=== PATIENT | female | born 1950 | race Hispanic/Latino ===

== ENCOUNTER 2019-02-07 15:30 | Outpatient (AMBR) | payer MEDICAID, SELFPAY ==
--- NOTE | 2019-01-26 18:25 | PT.ODAYNRPT ---
PT Outpatient Daily Note Date of Service: January 26, 2019 OP Daily Note Visit Reasons: RIGHT KNEE PAIN Outpatient Physical Therapy Treatment Date: 01/26/19 Subjective: Pt returns to therapy with additional authorized visits Objective: See F/S for therex Assessment: Pt can ambulate with less lateral sway when she concentrates. She has difficulty with SLR in supine and lacks knee extension. Improved knee extension PROM after Rx today. Plan: Continue per POC Length of Time (minutes) of Treatment: 30 Minutes Office Procedures PT Procedures PT Date of Service: 01/26/19 Therapeutic Exercise 30 minutes: Yes
--- NOTE | 2019-01-31 19:30 | PTNOTE_ITS ---
PT Outpatient Daily Note Date of Service: January 31, 2019 OP Daily Note Visit Reasons: RIGHT KNEE PAIN Outpatient Physical Therapy Treatment Date: 01/31/19 Subjective: The knee feels about the same as last visit Objective: See F/S for therex Assessment: Pt can ambulate with less lateral sway when she concentrates. She h as difficulty with SLR in supine and lacks knee extension. Improved knee extension PROM after Rx today. Plan: Continue per POC Length of Time (minutes) of Treatment: 30 Minutes Office Procedures PT Procedures PT Date of Service: 01/26/19 Therapeutic Exercise 30 minutes: Yes PT Procedures PT Date of Service: 01/31/19 Therapeutic Exercise 30 minutes: Yes
--- NOTE | 2019-02-02 17:46 | PT.ODAYNRPT ---
PT Outpatient Daily Note Date of Service: February 02, 2019 OP Daily Note Visit Reasons: RIGHT KNEE PAIN Outpatient Physical Therapy Treatment Date: 02/02/19 Subjective: The knee feels about the same as last visit Objective: See F/S for therex Assessment: Pt can ambulate with less lateral sway when she concentrates. She has difficulty with SLR in supine and lacks knee extension. Improved knee extension PROM after Rx today. Plan: Continue per POC Length of Time (minutes) of Treatment: 30 Minutes Office Procedures PT Procedures PT Date of Service: 02/02/19 Therapeutic Exercise 30 minutes: Yes PT Procedures PT Date of Service: 01/26/19 Therapeutic Exercise 30 minutes: Yes PT Procedures PT Date of Service: 01/31/19 Therapeutic Exercise 30 minutes: Yes
--- NOTE | 2019-02-07 16:12 | PT.ODS1RPT ---
PT OP Progress/Discharge Note Date of Service: February 07, 2019 Progress Note/DC Note Progress Note/Discharge Note: DC Note Patient Information Visit Reasons: RIGHT KNEE PAIN Service Continue Service or Discharge: Discharge Discharge Date: 02/07/19 Status Subjective: Pt reports the knee feels ok, not sure if it's any better since starting therapy Objective: R knee ArOM: Flexion: 75 deg Extension: -15 deg Strength: Quads: 4/5 HS: 4/5 Gait: lateral sway with flexed knee Assessment: Pt has attended 6/6 Rx visits and made limited progress with therapy goals objectively likely due to poor HEP compliance and time since sx. She improved in LE strength and slightly into flexion but is still very limited. Extension ArOM actually today vs the evaluation despite manual therapy and using weights to load the knee into extension with prolonged holding. Gait hasn't really improved either with cues or gait training. It's doubtful that she understands how much she understands here in the clinic as she has poor carryover visit to visit. Plan: Pt is discharged to provider for further workup. Office Procedures PT Procedures PT Date of Service: 02/02/19 Therapeutic Exercise 30 minutes: Yes PT Procedures PT Date of Service: 02/07/19 Therapeutic Exercise 30 minutes: Yes PT Procedures PT Date of Service: 01/26/19 Therapeutic Exercise 30 minutes: Yes PT Procedures PT Date of Service: 01/31/19 Therapeutic Exercise 30 minutes: Yes
== END 2019-02-23 23:59 | disposition home or self-care (01) ==
PROVIDERS: PCP Physician Assistant; Referring Provider Physician Assistant; Visit Provider Physician Assistant
DX: M17.11 Unilateral primary osteoarthritis, right knee (principal); M25.561 Pain in right knee
CPT/HCPCS: 97110